=== PATIENT | female | born 1940 | race Caucasian/White ===

== ENCOUNTER 2020-12-01 16:11 | Day surgery (SDCO) | payer MEDICARE, OTHER ==
[~2020-12-01] VITALS: Ht 152.4 cm; Wt 81.3 kg
[~2020-12-01 16:11] MED LIST: ASPIRIN EC81 MG PO; BACTRIM DS TAB1 EACH PO; CEFDINIR300 MG PO; CELEXA20 MG PO; CINNAMON500 MG PO; COZAAR50 MG PO; DETROL LA4 MG PO; EYE OMEGA ADVA1 EACH PO; LOVAZA1 GM PO; METFORMIN HCL500 MG PO; MYRBETRIQ25 MG PO; NEURONTIN300 MG PO; OMEPRAZOLE40 MG PO; SINGULAIR10 MG PO; WOMEN'S 50 PLU1 EACH PO; ZOCOR40 MG PO; ZYRTEC10 M3 PO
[2020-12-01 20:20] LABS: BASOPHIL 1.2 % (0-2); EOSINOPHIL 5.2 % (0-7); HCT 42.9 % (37.0-47.0); LYMPHOCYTE 45.3 % (15-48); MCH 35.5 pg (25.0-31.0); MCV 101.7 fL (78.0-100.0); MONOCYTE 7.9 % (0-12); MPV 11.8 fL (6.0-9.5); NEUTROPHIL 40.1 % (41-80); NRBC 0; PLT 141 K/uL (150-400); RBC 4.22 M/uL (4.20-5.40); RDW 12.7 % (11.5-14.0); WBC 10.1 K/uL (4.0-10.5)
[2020-12-01 20:48] LABS: LACTIC ACID 1.6 mmol/L (0.4-1.9)
[2020-12-01 20:51] LABS: PRO-BNP 58 pg/mL (<450)
[2020-12-01 20:53] LABS: ALBUMIN 3.2 g/dL (3.4-5.0); BILIRUBIN - TOTAL 0.5 mg/dL (0.2-1.0); CREATININE 0.69 mg/dL (0.51-0.95); GLOBULIN (CALCULATION) 4.7 g/dL; POTASSIUM 3.9 mmol/L (3.5-5.1); TOTAL PROTEIN 7.9 g/dL (6.4-8.2)
[2020-12-02] MEDS ORDERED: COZAAR50 MG PO (05:15)
[2020-12-02 06:17] LABS: BASOPHIL 0.3 % (0-2); EOSINOPHIL 0.2 % (0-7); HCT 43.4 % (37.0-47.0); HGB 14.9 g/dl (12.5-16.0); LYMPHOCYTE 24.3 % (15-48); MCH 34.5 pg (25.0-31.0); MCHC 34.3 g/dL (32.0-36.0); MCV 100.5 fL (78.0-100.0); MONOCYTE 1.5 % (0-12); NEUTROPHIL 73.2 % (41-80); PLT 136 K/uL (150-400); RBC 4.32 M/uL (4.20-5.40); RDW 12.3 % (11.5-14.0)
[2020-12-02 06:26] LABS: NRBC 0
[2020-12-02 06:40] LABS: BUN/CREAT RATIO (CALC) 19.7 RATIO; CREATININE 0.61 mg/dL (0.51-0.95); POTASSIUM 4.2 mmol/L (3.5-5.1)
[2020-12-02] MEDS ORDERED: VENTOLIN HFA IN18 GM INH (10:23)
[2020-12-02] MEDS ORDERED: PREDNISONE 20MG20 MG PO (10:23)
[2020-12-02] MEDS ORDERED: NORCO 5-325 TA1 EACH PO (10:23)
--- NOTE | 2020-12-02 12:28 | NUR ---
12/02/20 Ms. Manjarrez lives at home with her spouse. She has a cane, rw, wc, 3in1, and s. chair. She has a director systems. Dr. Tejeda requested for PT and nursing. Ms. Manjarrez requested for her [id number], Maeve Manjarrez to chose the [facility]. Ma. Naya Manjarrez chose [facility] via telephone. Affliation is understood. - A referral was made to [facility] via [facility]. - Report given to MS DULCE Groves.
== END 2020-12-02 12:25 | disposition home or self-care (01) ==
LOC: FER 16:11 → FMS 23:58
PROVIDERS: Emergency Medicine Emergency Medical Services; Nurse Practitioner; ADMIT Internal Medicine
DX: J43.9 Emphysema, unspecified (principal); J84.9 Interstitial pulmonary disease, unspecified; J96.01 Acute respiratory failure with hypoxia; S20.212A Contusion of left front wall of thorax, initial encounter; S69.92XA Unspecified injury of left wrist, hand and finger(s), initial encounter; J45.909 Unspecified asthma, uncomplicated; E11.40 Type 2 diabetes mellitus with diabetic neuropathy, unspecified; I10 Essential (primary) hypertension; K21.9 Gastro-esophageal reflux disease without esophagitis; M81.0 Age-related osteoporosis without current pathological fracture; H35.30 Unspecified macular degeneration; Z20.822 Contact with and (suspected) exposure to COVID-19; Z79.82 Long term (current) use of aspirin; Z79.84 Long term (current) use of oral hypoglycemic drugs; Z79.899 Other long term (current) drug therapy; Z88.5 Allergy status to narcotic agent; Z88.8 Allergy status to other drugs, medicaments and biological substances; Z98.1 Arthrodesis status; W19.XXXA Unspecified fall, initial encounter
CPT/HCPCS: 36415; 36600; 70450; 71250; 71275; 80048; 80053; 82803; 83036; 83605; 83690; 83880; 84484; 85025; 85379; 87040; 93005; 94010; 94640; G0378; J1650; J2920; J2930; Q9967; U0002